=== PATIENT | female | born 1985 | race Native Hawaiian/Other Pacific Islander ===

== ENCOUNTER 2016-10-05 14:35 | Emergency (ER) | payer OTHER ==
[2016-10-05 14:55] VITALS: BP 149/91
[2016-10-05] MEDS ORDERED: KETOROLAC TROMETHAMINE 60 MG/2 ML VIAL IM ONE (15:08)
--- NOTE | 2016-10-05 15:10 | ED Physician Documentation ---
Sore Throat/Dental Pain - HISTORIAN Historian: patient - HPI Stated Complaint: dental pain Chief Complaint: Dental Pain Further Comments: yes (31 year old female patient presents with complaints of dental pain for the past year. States she had an appointment with the dentist yesterday, but she missed it. Patient reports living in [place], drove to [facility] for dental pain.) - ROS CONST: no problems CVS/RESP: none GI/: denies: nausea, vomiting NEURO/PSYCH: none - PAST HX Past History: gum disease Other History: other (dental pain x 1 year) Allergies/Adverse Reactions: Allergies Allergy/AdvReac Type Severity Reaction Status Date / Time Penicillins Allergy Verified 10/05/16 14:43 Sulfa (Sulfonamide Allergy Verified 10/05/16 14:43 Antibiotics) Home Medications: Ambulatory Orders Medication Instructions Recorded Clindamycin HCl 300 mg PO TID #21 capsule 10/05/16 - SOCIAL HX Smoking History: cigarettes - FAMILY HX Family History: No - VITAL SIGNS Vital Signs: Vital Signs Temp Pulse Resp BP Pulse Ox 83 16 149/91 97 10/05/16 14:35 10/05/16 14:35 10/05/16 14:35 10/05/16 14:35 - REVIEWED ASSESSMENTS Nursing Assessment Reviewed: Yes Vitals Reviewed: Yes Progress - Progress Progress: Patient refused toradol injection. "that is ridiculous, I need a narcotic pill. " Requested this provider's name and RN's name "I am reporting her." Called RN "heartless jose raulch". Patient refused to sign discharge instructions. Left ER. ED Results Lab/Radiology - Orders Orders: ED Orders Category Date Time Status Ketorolac Tromethamine [Toradol] Med 10/05/16 15:08 Once 60 mg IM NOW ONE Dental Pain Physical Exam - EXAM General Appearance: no acute distress, alert Mouth/Throat: lips nml, gums nml, pharynx nml, voice nml, no drooling, no air way problems, no thrush, membranes nml, other (left upper last molar with mild edema at gumline, fractured tooth. ) Neuro/Psych: No: weakness Discharge Clincal Impression: Pain, dental, Left against medical advice Prescriptions: Clindamycin HCl 300 mg PO TID #21 capsule Referrals: Primary Doctor,No [Primary Care Provider] - 2 Days Home Medications: Ambulatory Orders Clindamycin HCl 300 mg PO TID #21 capsule 10/05/16 Condition: Stable Disposition: 01 HOME, SELF-CARE Decision to Admit: NO Decision Time: 15:09
== END 2016-10-05 15:25 | disposition home or self-care (01) ==
LOC: ED 14:35
DX: K02.9 Dental caries, unspecified (principal)
CPT/HCPCS: 96372; 99283